=== PATIENT | female | born 1940 | race Caucasian/White ===

== ENCOUNTER 2019-06-17 06:08 | Inpatient (IN) | payer MEDICARE, OTHER, SELFPAY ==
[2019-06-10 08:25] VITALS: BMI 42.5
[2019-06-17] VITALS (21 sets, daily range): BP systolic 97–151; BP diastolic 50–89; PULSE 60–97; RESP 12–26; TEMP 35.8–37; O2SAT 95–100; BMI 42.5
--- NOTE | 2019-06-17 | DI.RAD.S_ITS ---
PROCEDURE: XR LUMBAR SPINE 1V INDICATIONS: L2-5 LAMINECTOMY TECHNIQUE: A single fluoroscopic image was obtained during an operative procedure and submitted for interpretation following the completion of the procedure. COMPARISON: Correlation is made with prior lumbar spine plain films 11/16/18 and 10/07/18. Correlation is made with lumbar spine MRI 10/14/18. FINDINGS: This single fluoroscopic images performed for intraoperative localization. On this image, there is a metallic probe seen overlying the posterior aspect of the L3 vertebral body. Please correlate with intraoperative findings. IMPRESSION: Normal intraoperative examination. Dictated by: Duong Simon M.D. on 06/17/2019 at 9:02 Approved by: Duong Simon M.D. on 06/17/2019 at 9:02
--- NOTE | 2019-06-17 07:07 | PM.PREOP ---
Pre-operative Note Interval Note History & Physical reviewed/Exam performed by Physician: Yes Changes to H&P: No
[2019-06-17] MEDS: CEFAZOLIN 2 GM/100 ML FROZ.PIGGY IV ×2 (07:45→16:08)
--- NOTE | 2019-06-17 08:21 | SUR.OPER ---
Prone on spine table, head in foam head support, padded chest and pelvic supports, gel pad at knees, lower legs supported by pillows; nipples, genitalia and toes free of pressure, arms secured on foam padded arm boards at <90 degrees abduction. Additional gel padding to bed rails at hip level. Tape over blanket at thigh secured to table.
[2019-06-17] MEDS: THROMBIN (RECOMBINANT) 5,000 UNIT VIAL 5000 UNIT TOP (08:38)
[2019-06-17] MEDS: BUPIVACAINE 0.25% (PF) 8 ML, fentaNYL 100 MCG INJ (08:38)
[2019-06-17] MEDS: VANCOMYCIN 1,000 MG VIAL 1000 MG TOP (08:39)
[2019-06-17] MEDS: SODIUM CHLORIDE 0.9% 1,000 ML, GENTAMICIN 80 MG IRR (08:43)
[2019-06-17] MEDS: ACETAMINOPHEN IV 1,000 MG/100 ML VIAL 400 MG IV (09:00)
[2019-06-17] MEDS: LACTATED RINGERS 1,000 ML 42 ML IV ×2 (09:29→13:03)
--- NOTE | 2019-06-17 10:47 | P.OP_ITS ---
Operative Date/Time/Diagnoses Date of procedure: 06/17/19 Time of procedure: 10:47 Pre-op diagnosis: Lumbar stenosis with radiculopathy Post-op diagnosis: same Procedure & Clinicians Procedure: L1-2, L2-3, L3-4, L4-5 laminectomies Use of microscope Placement of epidural catheter Same procedure as scheduled: Yes Indications: [age] year old female with intractable pain from stenosis. They had failed conservative management and requested operative intervention. Risks and benefits of surgery were discussed and appropriate consents were obtained. Surgeon: Kenny Arshad [employer] Supervisor: Gume Cool Anesthesia Type: General Operative Notes Findings: None Closure Type: primary Specimen(s): none sent Applied: catheter Estimated Blood Loss (mL): 20 Procedure in detail: Patient was brought to the operating room and intubated on the table. They were rolled over on the well-padded prone position on the Javier table. A time-out was performed. Preoperative antibiotics were given. The back was prepped and draped in standard sterile fashion. Using fluoroscopy for localization, a 15 cm incision was made in the midline. We used Bovie to dissect through the lumbodorsal fascia and then subperiosteally dissect the paraspinal muscles off the right side. A marker was placed and x-ray was taken to confirm positioning. We then brought in the microscope. A right-sided laminectomy was performed at L4-5, then L3-4, then L2-3, then L1-2. We carefully depressed the dura and reached across the midline to decompress the opposite side. The neural foramen were cleared out. At the end, we could reach with the ball probe cephalad and caudally across the midline and to the foramen and everything was opened. The wound was irrigated. An epidural catheter was prepared with 8 mL of 0.25% Marcaine and 100 mcg of fentanyl. The dura was carefully depressed and the catheter was advanced 6 cm cephalad underneath remaining lamina without resistance. The fascia was then closed in layers. The epidural catheter was injected without complications. Vancomycin powder was placed in the wound. The superficial and the skin were closed. Sterile dressing was placed. Patient was rolled over extubated brought to recovery room with no complications. Complications: none Post-operative Condition: stable Disposition: PACU Plan for aftercare: Admission anticipate, 1-2 days in the hospital. Up as tolerated.
[2019-06-17] MEDS: fentaNYL 100 MCG/2 ML INJ IV ×2 (11:26→11:36)
[2019-06-17] MEDS: HYDROMORPHONE 2 MG INJ IV ×16 (11:32→12:52)
[2019-06-17] MEDS: hydrOXYzine 50 MG/ML INJ 25 MG IM (11:40)
--- NOTE | 2019-06-17 12:00 | CM.IDA ---
Discharge Planning/Care Management CM Discharge Assessment Start: 06/17/19 11:55 Freq: Status: Active Protocol: Document 06/17/19 11:55 PARESH (Rec: 06/17/19 12:00 PARESH [id number]) Discharge Planning Assessment Assigned Manager Pmo OBED León DPOA/Assigned Designee Name Jim Troy, spouse Contact Information [phone] Advance Directives? Yes History Provided By Patient,Medical Record Prior Living Arrangements House Household Members spouse Is patient alert and oriented? Yes Barriers to Discharge No Comment Pt is in the OR today for spinal surgery w/ Dr Arshad. PCP: Donta Lenz Payer: PHILIP/ Domi Reviewed chart and spoke w/ PITA Elizabeth; it is expected that pt will be safe to return home once medically cleared from Ortho, w/spouse to assist. Notes do not indicate PLOF but pt planning on returning home w/family assist upon DC. DC Planning team will be following closely and will assess DC needs further once pt returns to the acute care floor. OBED Evans Discharge Plan Home Additional Comment Needs further assessment Review Status In Process
[2019-06-17] MEDS: METOCLOPRAMIDE 10 MG/2 ML INJ IV (14:07)
[2019-06-17] MEDS: LACTATED RINGERS 1,000 ML 125 ML IV ×2 (14:12→22:12)
--- NOTE | 2019-06-17 14:37 | PC.NURSE ---
POST OP ARRIVAL 1335 - arrived drowsy, awake, when asked how she felt, responded queasy, per HYGIENE COORDINATOR, had nydia earlier in pacu, none prior to transport, pt turned and back inspected, aguila drain with shadow drainage, now marked on arrival, no leakage and within margins, green light flashing, wearing footie scd, 2l 99%, does use an inhaler prn at home 1-2 times week, reduced 02 to 1L and maintained 96-99% while awake, schafer w/small qty yellow urine, LR at 125ml started, given 10mg iv reglan.
[2019-06-17] MEDS: HYDROCODONE/ACET 5/325 TABLET 1 TAB PO (16:11)
--- NOTE | 2019-06-17 16:32 | PT.IIE ---
Current Diagnoses Morbid (severe) obesity due to excess calories (06/17/19) Spinal stenosis, lumbar region with neurogenic claudication (06/17/19) Other intervertebral disc degeneration, lumbar region (06/17/19) Strain of muscle, fascia and tendon of lower back, subsequent encounter (06/17/19) Surgery Performed Operation Date: 06/17/19 07:45 Actual Procedures p L1-2,L2-3,L3-4,L4-5 Laminectomies - Kenny Arshad MD Surgical History (Last Updated 06/10/19 @ 08:35 by Gretchen Goldsmith RN) History of arthroplasty of left knee (Acute ~2014) History of arthroplasty of right knee (Acute ~2014) History of hysterectomy (Acute) Hx of tonsillectomy (Acute) Medical History (Last Updated 06/10/19 @ 08:35 by Gretchen Goldsmith RN) DDD (degenerative disc disease) (Acute) HLD (hyperlipidemia) (Acute) HTN (hypertension) (Acute) Hypothyroidism (Acute) Lumbar stenosis with neurogenic claudication (Acute) Numbness and tingling of both feet (Acute) Physical Therapy Inpatient Evaluation/Re-Eval M1 PT/OT-IP Prior Functional Status Start: 06/17/19 17:13 Freq: NEEDED Status: Active Protocol: Document 06/17/19 16:32 DCW (Rec: 06/17/19 17:32 DCW [id number]) Medical Review Prior Functional Status Medical History Reviewed Yes Diet/Fluid Consistency Regular Prior Functional Level (Other details) Pt has recently had minimal ambulation due to back and leg pain. Reports the majority of her ambulation came from chair->bathroom Social History Household Members spouse Living Arrangements House Number of Floors (Floors) One Floor Number of Stairs To Enter/Railing? 1 short step up from garage Home Environment Standard Height Toilet Additional Social History Comment Pt has been showering at her son's house, because he has a walk-in shower. She has been unable to lift her leg high enough to get into her own tub -shower M2 PT-IP Current Condition Start: 06/17/19 17:13 Freq: NEEDED Status: Active Protocol: Document 06/17/19 16:32 DCW (Rec: 06/17/19 17:32 DCW [id number]) Physical Therapy Current Condition Current Condition Evaluation Date 06/17/19 Treatment Diagnosis Lumbar stenosis /c radiculopathy s/p L1-5 Lami Onset Date 06/17/19 Precautions Lumbar Precautions Log Roll,No Twisting,Limit Bending,Lifting Restriction of 10 lbs,Gait Belt above Incisional Area Weight Bearing Status Weight Bearing Status Weight Bear as Tolerated M3 PT-IP Subjective Start: 06/17/19 17:13 Freq: NEEDED Status: Active Protocol: Document 06/17/19 16:32 DCW (Rec: 06/17/19 17:32 DCW [id number]) Subjective Physical Therapy Visit Type Type Initial Evaluation Visit Start Time 16:32 Visit Stop Time 17:08 Total Visit Minutes 36 Physical Therapy Visit Comments Patient Comments Pt reported no pain when lying in bed, no pain during log roll. Pain 10/10 when scooting in bed M4 PT-IP Mobility and Gait Start: 06/17/19 17:13 Freq: NEEDED Status: Active Protocol: Document 06/17/19 16:32 DCW (Rec: 06/17/19 17:32 DCW [id number]) PT-Bed Mobility Assessment Rolling Type of Rolling Log Rolling,Roll to Left Level of Assist Minimal Assistance Supine to Sit Supine to Sit Minimal Assistance Sit to Supine Sit to Supine Minimal Assistance Scooting Scooting to Edge of Bed Moderate Assistance Scooting Up and Down in Bed Minimal Assistance PT-Transfer Assessment Sit to and From Stand Sit to and from Stand Contact Guard Assistance Equipment Transfer Assistive Device Bed Rail,Gait Belt,Front Wheeled Walker Comments Mobility Comments Pt experinced her knees wobbling in standing. Only able to tolerate standing >5 seconds x3. Pt unable to tolerate any further testing due to fatigue and pain M5 PT-IP Objective Assessments Start: 06/17/19 17:13 Freq: NEEDED Status: Active Protocol: Document 06/17/19 16:32 DCW (Rec: 06/17/19 17:32 DCW [id number]) Orientation Orientation/Cognition Level of Alertness Alert Orientation Name,Birthday,Month,Date,Year, Place,Situation Safety Awareness Understands Safety Issues Memory Description No Deficits Noted Gross Range of Motion Lower Extremity ROM Assessment Bilaterally Impaired Strength Lower Extremity Strength Assessment Bilaterally Impaired Hip 4/5 Knee 4-/5 Ankle 4/5 M6 PT-IP Treatment Start: 06/17/19 17:13 Freq: NEEDED Status: Active Protocol: Document 06/17/19 16:32 DCW (Rec: 06/17/19 17:32 DCW [id number]) Physical Therapy Treatment Exercises Exercises Ankle Pumps Education Education Provided Precautions,Safety Other Treatments Other Treatment Performed Sit<->Stands M7 PT-IP Assessment and Plan Start: 06/17/19 17:13 Freq: NEEDED Status: Active Protocol: Document 06/17/19 16:32 DCW (Rec: 06/17/19 17:32 DCW [id number]) PT Summary Assessment and Plan Potential Rehabilitation Potential Good Status of Condition at Evaluation Stable Summary Impairments Pain,ROM,Strength,Balance,Bed Mobility,Transfers,Gait, Activity Tolerance Assessment Summary Pt presents on day of surgery with minimal back or leg pain at rest, but apprehensive about moving. After exclaiming that she couldn't do it when asked to log roll, she was able to with min Ax1 and no increased pain. Pt was then able to sit with minimal pain , however experienced severe pain when scooting to the edge of the bed, reporting it 10/ 10, however wanted to continue . Pt performed sit->stand CGA x3 with minimal pain but became fatigued and reported her knees felt like they were going to buckle. Pt was then put back in bed, Min->Mod Ax1 to lie back down and log roll into supine, and then required Max Ax2 to scoot back. Reviewed importance of ankle pumps and following spinal precautions. Pt was left with PIPE FITTER GAS PIPE at the end of her treatment session. Goals Bed Mobility Goal Independent Transfer Goal Independent Gait Goal Independent,Front Wheel Walker Gait Distance 75' Frequency of Treatment Frequency Of Treatment Twice a Day Treatment Plan Physical Therapy Treatment Plan Bed Mobility Training,Transfer Training,Gait Training, Therapeutic Exercise Other Recommendations and Next Treatment Activity tolerance, bed Focus mobility, transfers, gait Recommendations To Nursing Amount of Assist Needed 1 Person Assist,2 Person Assist Discharge Recommendations PT Discharge Recommendations Home with Assistance
--- NOTE | 2019-06-17 19:01 | PC.NURSE ---
Assumed care of pt at 1500. Pt sleeping during bedside hand-off. Awakens to voice. Drsg with moderate spot of drainage remains within the previously drawn borders. CMS+. Shook draining to gravity. IVF infusing per orders. PO analgesics per mar for post-op pain. Per VALENTÍN hahn to use own Albuterol inhaler at bedside. Inhaler sent to pharmacy for identification.
[2019-06-17] MEDS: carvediloL 12.5 MG TABLET PO (20:38)
[2019-06-17] MEDS: DOCUSATE 100 MG CAPSULE PO (20:39)
[2019-06-17] MEDS: CELECOXIB 200 MG CAPSULE PO (20:39)
[2019-06-17] MEDS: SENNOSIDES 8.6 MG TABLET 17.2 MG PO (20:40)
[2019-06-17] MEDS: HYDROCODONE/ACET 5/325 TABLET 2 TAB PO (20:40)
[2019-06-17] MEDS: GABAPENTIN 300 MG CAPSULE PO (20:40)
[2019-06-18] VITALS (8 sets, daily range): BP systolic 112–146; BP diastolic 57–83; PULSE 72–94; RESP 12–18; TEMP 36.4–37.6; O2SAT 93–98
[2019-06-18] MEDS: CEFAZOLIN 2 GM/100 ML FROZ.PIGGY IV (00:16)
--- NOTE | 2019-06-18 01:24 | PC.NURSE ---
Addendum entered by Erika Becerra R.N. 06/18/19 05:19: Patient has slept most of night. This morning states pain is 6/10 at rest and 8/10 with movement. Repositioned onto back and medicated with Vicodin. Original Note: 0020 Patient is alert and oriented. Breath sounds CTA with RA sat of 95%. HRR. BP elevated at 147/83. Denies nausea. BT present and states she is passing flatus. Indwelling catheter is patent; urine is clear yellow. Unable to move self in bed but able to assist to reposition q2h. STACIE dressing to back with old drainage outlined and no new drainage noted. Denies pain at present time. Reports continued weakness in bilateral LE. 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 Calf SCD's placed as per MD order. Fall risk score is high (reports fall in past 3 months) and bed alarm is activated.
--- NOTE | 2019-06-18 01:56 | PC.NURSE ---
[employer] note: tilted the brittny bed to the right a little bit (4 degrees) to offload some pressure from side. Q2 hour turns in place.
[2019-06-18] MEDS: HYDROCODONE/ACET 5/325 TABLET 2 TAB PO ×3 (05:15→21:36)
[2019-06-18 05:34] LABS: Hemoglobin 12.2 g/dL (12.0-16.0)
[2019-06-18] MEDS: LEVOTHYROXINE 137 MCG TABLET PO (06:01)
--- NOTE | 2019-06-18 08:48 | PM.PNPO.1 ---
Subjective Subjective Date Patient Seen: 06/18/19 Time Patient Seen: 08:48 Interval history: She is doing better today. Leg still feel weak and tingling but better than they did prior to surgery. Pain is about a 3/10. So far she has only gotten out of bed transfer to a chair. Exam Vital Signs (past 8 hours): - 06/18/19 05:29 Temperature 99.6 F Pulse Rate 91 H Respiratory Rate 16 Blood Pressure 146/83 H Pulse Oximetry 95 Oxygen Delivery Method Room Air Oxygen Flow Rate 0 Const Orientation: alert and oriented x3 Back/Spine/Pelvis Other: Dressing saturated but appears to be mostly old dried blood. 5/5 motor both lower extremities Objective Labs Result Diagrams: 06/18/19 05:20 Labs: Laboratory Results - last 24 hr 06/18/19 05:20 Hgb 12.2 Hct 35.0 L Assessment & Plan Post-op Postoperative Procedures: Procedures Operation Date: 06/17/19 07:45 Actual Procedures Side Surgeon p L1-2,L2-3,L3-4,L4-5 Laminectomies Kenny Arshad MD Status post 4 level laminectomy. Continue to mobilize today with physical therapy. I anticipate her being here for 1-2 more days, primarily based on her severe preoperative weakness and deconditioning. This will take significant time for her to start building up her strength to get moving independently again. Quality VTE Deep Vein Thrombosis/Pulmonary Embolism Present on Admission: No
--- NOTE | 2019-06-18 08:56 | OT.IP.EVAL ---
Current Diagnoses Morbid (severe) obesity due to excess calories (06/17/19) Spinal stenosis, lumbar region with neurogenic claudication (06/17/19) Other intervertebral disc degeneration, lumbar region (06/17/19) Strain of muscle, fascia and tendon of lower back, subsequent encounter (06/17/19) Surgery Performed Operation Date: 06/17/19 07:45 Actual Procedures p L1-2,L2-3,L3-4,L4-5 Laminectomies - Kenny Arshad MD Past Medical History (Last Updated 06/10/19 @ 08:35 by Gretchen Goldsmith RN) DDD (degenerative disc disease) (Acute) HLD (hyperlipidemia) (Acute) HTN (hypertension) (Acute) Hypothyroidism (Acute) Lumbar stenosis with neurogenic claudication (Acute) Numbness and tingling of both feet (Acute) Surgical History (Last Updated 06/10/19 @ 08:35 by Gretchen Goldsmith RN) History of arthroplasty of left knee (Acute ~2014) History of arthroplasty of right knee (Acute ~2014) History of hysterectomy (Acute) Hx of tonsillectomy (Acute) Occupational Therapy Inpatient Evaluation/Re-Eval M1 PT/OT-IP Prior Functional Status Start: 06/17/19 17:13 Freq: NEEDED Status: Active Protocol: Document 06/18/19 10:10 CGR (Rec: 06/18/19 10:30 CGR [email or web address]) Medical Review Prior Functional Status Medical History Reviewed Yes Diet/Fluid Consistency Regular Communication Pt is an effecitve verbal communicator. Mobility and Gait Pt used a FWW for mobility around the house and in the driveway and a rollator for mobility out in town. Pt with very limited mobility. Activities of Daily Living and IADL's Pt needed assist with socks, showes, underwear, pants, cooking and cleaning. Prior Functional Level (Other details) Pt has recently had minimal ambulation due to back and leg pain. Reports the majority of her ambulation came from chair->bathroom Social History Household Members spouse Living Arrangements House Number of Floors (Floors) One Floor Number of Stairs To Enter/Railing? 1 short step up from garage Home Environment High Toilet,Tub/Shower Home Equipment Front Wheel Walker,Four Wheel Walker,Bedside Commode,Shower Seat with Backrest,Grab Bars In Shower Employment Status Retired Additional Social History Comment Pt has been showering at her son's house, because he has a walk-in shower. She has been unable to lift her leg high enough to get into her own tub -shower. Pt's son is preparing to put a grab bar in by the toilet but pt has been using a drop arm BSC during the day to minimize the distance she need to travel to get to the toilet. Pt has a huricane that she used after her knee replacements. M2 OT-IP Current Condition Start: 06/18/19 10:09 Freq: Status: Active Protocol: Document 06/18/19 10:10 CGR (Rec: 06/18/19 10:30 CGR [email or web address]) Occupational Therapy Current Condition Current Condition Evaluation Date 06/18/19 Treatment Diagnosis L1-5 Lami Diagnosis Onset Date 06/17/19 Post Operative Precautions Lumbar Precautions Log Roll,No Twisting,Limit Bending,Lifting Restriction of 10 lbs,Gait Belt above Incisional Area M3 OT- IP Subjective and Pain Start: 06/18/19 10:09 Freq: Status: Active Protocol: Document 06/18/19 10:10 CGR (Rec: 06/18/19 10:30 CGR [email or web address]) OT- Subjective Occupational Therapy Visit Type Type Initial Evaluation Visit Start Time 08:10 Visit Stop Time 08:56 Total Visit Minutes 46 Occupational Therapy Visit Comments Patient Comments Pt states that she was very weak yesterday but states she feels better today. OT Pain Assessment Pain When Pain Assessed At Rest Pain Present Pain Present Pain Reported Location lower back and legs and feet Intensity 3 Scale Used Numeric (1 - 10) Management Techniques Distraction,Modification of Treatment,Re-positioning, Timing of Activity with Medications M4 OT- IP ADL's Start: 06/18/19 10:09 Freq: Status: Active Protocol: Document 06/18/19 10:10 CGR (Rec: 06/18/19 10:30 CGR [email or web address]) OT RGB-Keii-Ddrixhq General Evaluation Self-Feeding Ability Independent Comments OT Self-Feeding Comments Pt finishing breakfast when OT entered. OT ADL-Grooming General Evaluation Grooming Ability Minimal Assistance Areas Needing Assistance Retrieving/Set-up of Grooming Items,Face Washing Comments OT Grooming Comments seated in chair OT ADL-Oral Care General Eval Oral Care Ability Maximum Assistance Areas of Assistance Managing Dentures Comments Oral Care Comments Pt requested therapsit to assist with cleaning dentures at sink. States fatigued from transfer to chair. OT ADL-Dressing Comments OT Dressing Comments Not performed in this session. Planned to perform tomorrow with DME OT ADL-Toileting Comments OT Toileting Comments Not performed in this session, pt with schafer. OT ADL-Bathing Comments OT Bathing Comments Not performed in this session. M5 OT- IP IADL's Start: 06/18/19 10:09 Freq: Status: Active Protocol: Document 06/18/19 10:10 CGR (Rec: 06/18/19 10:30 CGR [email or web address]) OT-Instrumental Activities of Daily Living Deficits IADL Deficits Identified Deficits Home Safety Awareness Awareness of Need for Assistance at Home Good Awareness Ability to Problem Solve Emergency Able to Problem Solve Situations Medication Management Medication Management No Deficits Identified Money Management Money Management No Deficits Identified Meal Preparation Meal Preparation Caregiver Provides Assist Bee Tender Bee Tender Caregiver Provides Assist Driving Driving Comments Pt does not drive M6 OT- IP Functional Cognition Start: 06/18/19 10:09 Freq: Status: Active Protocol: Document 06/18/19 10:10 CGR (Rec: 06/18/19 10:30 CGR [email or web address]) Cognitive Factors Limiting Selfcare Function Cognitive Ability Level of Alertness Alert Patient Orientation Name,Age,Birthday,Month,Date, Year,Day of Week,Place, Situation Attention Span Ability Capable of Focused Attention, Capable of Sustained Attention Ability to Follow Commands Able to Follow Multi-Step Commands Memory Description No Deficits Noted Safety Awareness Decreased Recall of Precautions Problem Solving Ability No deficits Noted Executive Function Ability No Deficits Noted Abstract Thinking Ability No Deficits Noted Cognitive Comments Cognitive Assessment Comments Pt appears cognitively sharp for 79 years old. Pt is a good listener, follows commands, and applys new information to her decision making. OT- Vision and Hearing OT- Hearing Assessment OT- Hearing Assessment WFL OT- Vision Assessment Visual Acuity Glasses All The Time Visual Attentiveness WFL Occular Pursuits WFL Visual Convergence WFL Visual Gallego WFL Vision Assessment Comments Pt is slow with visual tracking but WFL as she no longer drives. M7 OT- IP Mobility and Balance Start: 06/18/19 10:09 Freq: Status: Active Protocol: Document 06/18/19 10:10 CGR (Rec: 06/18/19 10:30 CGR [email or web address]) OT- Bed Mobility Assessment Rolling Level of Assistance Minimal Assistance Supine to Sit Supine to Sit Assist Moderate Assistance Sit to Supine Sit to Supine Assist Moderate Assistance Scooting Scooting to Edge of Bed Moderate Assistance OT-Transfer Assessment Sit to and From Stand Sit to and from Stand Contact Guard Assistance Transfers Transfer Ability Minimal Assistance Technique Transfer Destination Bed,Chair Transfer Technique Stand Step Pivot Devices Transfer Assistive Devices Gait Belt,Front Wheeled Walker Comments Mobility Comments Pt was able to take steps to the chair. States her legs feel stronger, however, during transfer her knees are slightly bent and pt appears unstable. OT- Gait Assessment Comments Gait Ability Comments Pt transfered from bed to chair only. No further gait in this session. OT- Balance Assessment Sitting Balance and Reactions Static Sitting Balance Ability Good Dynamic Sitting Balance Ability Fair M8 OT- IP Objective Assessments Start: 06/18/19 10:09 Freq: Status: Active Protocol: Document 06/18/19 10:10 CGR (Rec: 06/18/19 10:30 CGR [email or web address]) OT Gross Range of Motion Upper Extremity Range of Motion Assessment Within Functional Limits OT Strength Upper Extremity Strength Assessment Within Functional Limits Comments Strength Comments Grossly 4/5 OT- Coordination Assessment Upper Extremity Finger to Nose Test Within Functional Limits Finger Tapping Test Within Functional Limits OT-Muscle Tone Assessment Muscle Tone WNL Yes OT Sensation Assessment Comments Summary Comments Pt states tingling and numbness to her feet but nothing to her arms or hands. Edema Edema Absent M9 OT- IP Assessment and Plan Start: 06/18/19 10:09 Freq: Status: Active Protocol: Document 06/18/19 10:10 CGR (Rec: 06/18/19 10:30 CGR [email or web address]) OT Summary Assessment and Plan Potential Rehabilitation Potential Good Analytic Complexity at Evaluation Low Summary OT Impairments Pain,Strength,Balance, Functional Mobility,Grooming, Dressing,Toileting,Bathing, Toilet Transfers,Shower Transfers,Activity Tolerance Progress Towards Goals Slow Progress due to Pain,Slow Progress due to Activity Tolerance Assessment Summary Pt presents as a low complexity evaluation s/p L1-5 TLIF. Pt had limited mobility using DME prior to sx from back pain. Pt demonstrates eagerness to participate and get better. Pt would benefit from SNF upon discharge for increased safety and strengthening prior to discharge. Goals Grooming Goal Independent Dressing Goal Independent Toileting Goal Independent Bathing Goal Standby Assistance Toilet Transfer Goal Independent,ADA High Toilet, Grab Bars Shower Transfer Goal Standby Assistance,Walk-in Shower Days to Meet Goals 10 Frequency of Treatment Frequency Of Treatment Once a Day Treatment Plan OT Treatment Plan ADL Training,Functional Mobility,Patient/Family Education,Discharge Planning Other Treatment Recommendations and Next Shower and ADLs standing if Treatment Focus tolerated. LB dressing. Discharge Recommendations OT Discharge Recommendations SNF Rehab Other Discharge Recommendations Pt agreeable to considering SNF if needed at time of discharge. Home Equipment Needs Tub transfer bench, educated pt on use for home. Transportation Needs at Discharge Private Vehicle
[2019-06-18] MEDS: LOSARTAN 50 MG TABLET 100 MG PO (09:33)
[2019-06-18] MEDS: ASPIRIN EC 81 MG TABLET PO (09:33)
[2019-06-18] MEDS: carvediloL 12.5 MG TABLET PO ×2 (09:33→21:36)
[2019-06-18] MEDS: AMLODIPINE 5 MG TABLET 10 MG PO (09:33)
[2019-06-18] MEDS: DOCUSATE 100 MG CAPSULE PO ×2 (09:34→21:36)
[2019-06-18] MEDS: CELECOXIB 200 MG CAPSULE PO ×2 (09:35→21:36)
[2019-06-18] MEDS: SODIUM CHLORIDE 0.9% FLUSH 10 ML IV ×2 (09:36→21:38)
[2019-06-18] MEDS: FISH OIL 1,000 MG CAPSULE 1000 MG PO (09:39)
--- NOTE | 2019-06-18 10:29 | PC.NURSE ---
Pt is A&Ox3, she states that her pain is 4/10. Dressing to lower back is cdi with old amount of dried bloody drainage. Patient has a aguila drain applied. Up with 1-2 PA when working with therapy. She has been up in the chair. Appetite good. Working with physical therapy at this time.
--- NOTE | 2019-06-18 10:59 | PT.IPTN ---
Current Diagnoses Morbid (severe) obesity due to excess calories (06/17/19) Spinal stenosis, lumbar region with neurogenic claudication (06/17/19) Other intervertebral disc degeneration, lumbar region (06/17/19) Strain of muscle, fascia and tendon of lower back, subsequent encounter (06/17/19) Surgery Performed Operation Date: 06/17/19 07:45 Actual Procedures p L1-2,L2-3,L3-4,L4-5 Laminectomies - Kenny Arshad MD Physical Therapy Treatment Note M2 PT-IP Current Condition Start: 06/17/19 17:13 Freq: NEEDED Status: Active Protocol: Document 06/17/19 16:32 DCW (Rec: 06/17/19 17:32 DCW [id number]) Physical Therapy Current Condition Current Condition Evaluation Date 06/17/19 Treatment Diagnosis Lumbar stenosis /c radiculopathy s/p L1-5 Lami Onset Date 06/17/19 Precautions Lumbar Precautions Log Roll,No Twisting,Limit Bending,Lifting Restriction of 10 lbs,Gait Belt above Incisional Area Weight Bearing Status Weight Bearing Status Weight Bear as Tolerated M3 PT-IP Subjective Start: 06/17/19 17:13 Freq: NEEDED Status: Active Protocol: Document 06/18/19 10:35 HH (Rec: 06/18/19 10:59 [id number]) Subjective Physical Therapy Visit Type Type Treatment Note Visit Start Time 10:12 Visit Stop Time 10:35 Total Visit Minutes 23 Physical Therapy Visit Comments Patient Comments Pt agreeable to mobilize with PT M4 PT-IP Mobility and Gait Start: 06/17/19 17:13 Freq: NEEDED Status: Active Protocol: Document 06/18/19 10:35 HH (Rec: 06/18/19 10:59 [email or web address]) PT-Transfer Assessment Sit to and From Stand Sit to and from Stand Contact Guard Assistance, Minimal Assistance,1 Person Assistance Equipment Transfer Assistive Device Gait Belt,Front Wheeled Walker Transfers Transfer Destination Chair Transfer Technique Stand Step Pivot Transfer Ability Level of Assist Contact Guard Assistance, Minimal Assistance,1 Person Assistance Comments Mobility Comments Pt was up in chair upon PT arrival. Pt reported cont decreased sensation below B knees but slightly better. She had difficulty getting up from chair and needed multiple attempts with trunk rocking motion to stand up with min A. Pt needed cues for hand placement on FWW and chair armrest. She then amb to sink counter and returned back to chair. And she stood up after a rest break and able to stand up with CGA and amb up to room door. She returned back to chair after. Call light within reach. Gait Assessment Gait Gait Assistance Required: Contact Guard Assist Distance (Feet) 25 Able to Maintain Weight Bearing Status Yes During Gait Assistive Devices Assistive Device Gait Belt,Front Wheeled Walker Orthotic/Prosthetic Devices or Brace: No Gait Deviations General Gait Pattern Antalgic,Decreased Stride Length,Decreased Feet Clearance,Step-to Gait Factors Limiting Gait Function Factors Limiting Gait Function Decreased Activity Tolerance, Decreased Strength,Limited Range of Motion,Pain,Poor Balance,Poor Safety Awareness Comments Gait Comments Pt amb from chair to sink counter for first attempt and took 5 mins rest break followed by from chair to room door. Pt got fatigue very easily and c/o B LE weakness who had difficulty lifting up her Legs. She amb with B foot drag. M5 PT-IP Objective Assessments Start: 06/17/19 17:13 Freq: NEEDED Status: Active Protocol: Document 06/17/19 16:32 DCW (Rec: 06/17/19 17:32 [facility] [id number]) Orientation Orientation/Cognition Level of Alertness Alert Orientation Name,Birthday,Month,Date,Year, Place,Situation Safety Awareness Understands Safety Issues Memory Description No Deficits Noted Gross Range of Motion Lower Extremity ROM Assessment Bilaterally Impaired Strength Lower Extremity Strength Assessment Bilaterally Impaired Hip 4/5 Knee 4-/5 Ankle 4/5 M6 PT-IP Treatment Start: 06/17/19 17:13 Freq: NEEDED Status: Active Protocol: Document 06/17/19 16:32 DCW (Rec: 06/17/19 17:32 DC [id number]) Physical Therapy Treatment Exercises Exercises Ankle Pumps Education Education Provided Precautions,Safety Other Treatments Other Treatment Performed Sit<->Stands M7 PT-IP Assessment and Plan Start: 06/17/19 17:13 Freq: NEEDED Status: Active Protocol: Document 06/18/19 10:35 HH (Rec: 06/18/19 10:59 HH [id number]) PT Summary Assessment and Plan Potential Rehabilitation Potential Good Status of Condition at Evaluation Stable Summary Impairments Pain,ROM,Strength,Balance,Bed Mobility,Transfers,Gait, Activity Tolerance Assessment Summary Pt cont progress slowly and has significant B LE weakness. Pt shows very limited activity tolerance who is only able to amb from chair to sink/ room door. Dis with pt regarding her decreased mobility would possibly be a burden for her 'care, along with high fall risks. Pt agreed to participate skilled rehab to improve mobility and strength at this point. Goals Bed Mobility Goal Independent Transfer Goal Independent Gait Goal Independent,Front Wheel Walker Gait Distance 75' Frequency of Treatment Frequency Of Treatment Twice a Day Treatment Plan Physical Therapy Treatment Plan Bed Mobility Training,Transfer Training,Gait Training, Therapeutic Exercise Other Recommendations and Next Treatment Activity tolerance, bed Focus mobility, transfers, gait Recommendations To Nursing Amount of Assist Needed 1 Person Assist Discharge Recommendations PT Discharge Recommendations SNF Rehab
--- NOTE | 2019-06-18 12:09 | CM.DPNOTE ---
MACHINE CASTINGS PLASTERER told me today at noon that they are advising SNF. I spoke to patient and provided MCR list for her and her to review. I also provided directions as to how to comparison shop the facilities online. Patient not certain she wants to go to SNF... needs to talk to before they go that route. He'll be in lthis afternoon. They will let MANAGER CUSTOMER know what they chose [facility].
--- NOTE | 2019-06-18 15:01 | PT.IPTN ---
Current Diagnoses Morbid (severe) obesity due to excess calories (06/17/19) Spinal stenosis, lumbar region with neurogenic claudication (06/17/19) Other intervertebral disc degeneration, lumbar region (06/17/19) Strain of muscle, fascia and tendon of lower back, subsequent encounter (06/17/19) Surgery Performed Operation Date: 06/17/19 07:45 Actual Procedures p L1-2,L2-3,L3-4,L4-5 Laminectomies - Kenny Arshad MD Physical Therapy Treatment Note M2 PT-IP Current Condition Start: 06/17/19 17:13 Freq: NEEDED Status: Active Protocol: Document 06/17/19 16:32 DCW (Rec: 06/17/19 17:32 DCW [id number]) Physical Therapy Current Condition Current Condition Evaluation Date 06/17/19 Treatment Diagnosis Lumbar stenosis /c radiculopathy s/p L1-5 Lami Onset Date 06/17/19 Precautions Lumbar Precautions Log Roll,No Twisting,Limit Bending,Lifting Restriction of 10 lbs,Gait Belt above Incisional Area Weight Bearing Status Weight Bearing Status Weight Bear as Tolerated M3 PT-IP Subjective Start: 06/17/19 17:13 Freq: NEEDED Status: Active Protocol: Document 06/18/19 14:44 KS (Rec: 06/18/19 15:28 KS [id number]) Subjective Physical Therapy Visit Type Type Treatment Note Visit Start Time 14:44 Visit Stop Time 15:01 Total Visit Minutes 17 Number of BAR CAPTAIN Visits 1 Physical Therapy Visit Comments Patient Comments Pt agreeable to mobilize with PT M4 PT-IP Mobility and Gait Start: 06/17/19 17:13 Freq: NEEDED Status: Active Protocol: Document 06/18/19 14:44 KS (Rec: 06/18/19 15:28 KS [id number]) PT-Bed Mobility Assessment Scooting Scooting to Edge of Bed Contact Guard Assistance PT-Transfer Assessment Sit to and From Stand Sit to and from Stand Contact Guard Assistance, Minimal Assistance,1 Person Assistance Equipment Transfer Assistive Device Gait Belt,Front Wheeled Walker Transfers Transfer Destination Chair Transfer Technique Pt ambulated w/ FWW. Transfer Ability Level of Assist Contact Guard Assistance, Minimal Assistance,1 Person Assistance Comments Mobility Comments Pt was in chair upon arrival from PT. BP 130/64 prior to iniating treatment. Pt scooted to edge of chair CGA, then stood after second attempt w/ CGA to Min A w/ cues to push up from chair. Once standing, pt stated she needed to wait before ambulating for sensation to come back to her feet. Pt then ambulated and returned to chair. Pt demonstrated proper FWW technique and was CGA for stand<>sit in chair. Pt was then instructed in ankle pumps , quad sets, and glute sets. Pt left in room w/ all needs in reach and son/Tim present . Gait Assessment Gait Gait Assistance Required: Contact Guard Assist,1 Person Assist Distance (Feet) 35 Able to Maintain Weight Bearing Status Yes During Gait Assistive Devices Assistive Device Gait Belt,Front Wheeled Walker Orthotic/Prosthetic Devices or Brace: No Gait Deviations General Gait Pattern Antalgic,Decreased Stride Length,Decreased Feet Clearance,Step-to Gait Factors Limiting Gait Function Factors Limiting Gait Function Decreased Activity Tolerance, Decreased Strength,Limited Range of Motion,Pain,Poor Balance,Poor Safety Awareness Comments Gait Comments Pt ambulated ~35 ft from chair out into hallway and then back to [facility] w/ FWW and CGA. She required 1 x15 sec standing rest break during approach back to chair. Cues for upright posture. Pt was mindful/had good recall of importance of foot clearance and was not dragging her feet during ambulation, but still had decreased clearance and stride length due to weakness and lack of sensation. M5 PT-IP Objective Assessments Start: 06/17/19 17:13 Freq: NEEDED Status: Active Protocol: Document 06/17/19 16:32 DCW (Rec: 06/17/19 17:32 DCW [id number]) Orientation Orientation/Cognition Level of Alertness Alert Orientation Name,Birthday,Month,Date,Year, Place,Situation Safety Awareness Understands Safety Issues Memory Description No Deficits Noted Gross Range of Motion Lower Extremity ROM Assessment Bilaterally Impaired Strength Lower Extremity Strength Assessment Bilaterally Impaired Hip 4/5 Knee 4-/5 Ankle 4/5 M6 PT-IP Treatment Start: 06/17/19 17:13 Freq: NEEDED Status: Active Protocol: Document 06/18/19 14:44 KS (Rec: 06/18/19 15:28 KS [id number]) Physical Therapy Treatment Exercises Exercises Ankle Pumps,Gluteal Sets,Quad Sets Education Education Provided Precautions,Safety Other Treatments Other Treatment Performed Reviewed precautions M7 PT-IP Assessment and Plan Start: 06/17/19 17:13 Freq: NEEDED Status: Active Protocol: Document 06/18/19 14:44 KS (Rec: 06/18/19 15:28 KS [id number]) PT Summary Assessment and Plan Potential Rehabilitation Potential Good Status of Condition at Evaluation Stable Summary Impairments Pain,ROM,Strength,Balance,Bed Mobility,Transfers,Gait, Activity Tolerance Assessment Summary BP 130/64 prior to treatment. Pt continues to have B lack of sensation in feet. CGA to Min A for mobility, CGA for ambulation w/ FWW. Pt ambulated ~35 ft w/ FWW and cues for upright posture, she needed 1 short standing rest break on approach back to chair. Had good recall and did not drag feet during ambulation. Pt instructed in LE strengthening exercises to help w/ blood flow and strength for mobility/ ambulation. Pt will benefit from continued skilled therapy including mobility, gait training, and strengthening to improve level of function and tolerance to activity. Goals Bed Mobility Goal Independent Transfer Goal Independent Gait Goal Independent,Front Wheel Walker Gait Distance 75' Frequency of Treatment Frequency Of Treatment Twice a Day Treatment Plan Physical Therapy Treatment Plan Bed Mobility Training,Transfer Training,Gait Training, Therapeutic Exercise Other Recommendations and Next Treatment Activity tolerance, bed Focus mobility, transfers, gait Recommendations To Nursing Amount of Assist Needed 1 Person Assist Discharge Recommendations PT Discharge Recommendations SNF Rehab
[2019-06-18] MEDS: HYDROCODONE/ACET 5/325 TABLET 1 TAB PO (17:35)
[2019-06-18] MEDS: SENNOSIDES 8.6 MG TABLET 17.2 MG PO (21:36)
[2019-06-18] MEDS: GABAPENTIN 300 MG CAPSULE PO (21:36)
[2019-06-19] VITALS (8 sets, daily range): BP systolic 109–150; BP diastolic 59–77; PULSE 69–80; RESP 16–19; TEMP 35.9–36.9; O2SAT 94–97
--- NOTE | 2019-06-19 00:22 | PC.NURSE ---
Addendum entered by Erika Becerra R.N. 06/20/19 02:52: Noted that last night emar showing only 1 tab of Vicodin was given at 0344, but 2 tabs were given (both were scanned but unsure why only displaying 1 tab). Unable to undo the administration in order to correct the emar. Did reenter the 2 tabs of Vicodin tonight that were given last night. Addendum entered by Erika Becerra R.N. 06/19/19 06:34: Catheter d'cd at 0625; patient tolerated well. Instructed in sx/prevention of UTI. Addendum entered by Erika Becerra R.N. 06/19/19 03:49: Patient complains of 8/10 back pain; repositioned onto back and medicated with Vicodin Original Note: Patient is alert and oriented. Breath sounds CTA with RA sat of 96%. HRR. Denies nausea. BT present and is passing flatus. Indwelling catheter is patent; urine clear, pale, yellow. Plan is to DC catheter in a.m. Continues to need assistance to reposition in bed. STACIE dressing to back is intact with increased drainage from last night which was reoutlined on evening shift and now within those new markings. Denies pain at present time. Chronic bilateral LE neuropathy with some improvement since surgery, otherwise CMS intact. Wearing bilateral calf SCD's. Fall risk score is high and bed alarm is activated.
[2019-06-19] MEDS: HYDROCODONE/ACET 5/325 TABLET 2 TAB PO ×3 (03:44→14:38)
[2019-06-19] MEDS: HYDROCODONE/ACET 5/325 TABLET 1 TAB PO (03:44)
[2019-06-19] MEDS: LEVOTHYROXINE 137 MCG TABLET PO (06:19)
--- NOTE | 2019-06-19 07:54 | PM.PNPO.1 ---
Subjective Subjective Date Patient Seen: 06/19/19 Time Patient Seen: 07:54 Interval history: She is doing well. Still requiring assist for mobility. However her legs are feeling much better today. Exam Vital Signs (past 8 hours): - 06/19/19 04:14 Temperature 96.7 F L Pulse Rate 73 Respiratory Rate 16 Blood Pressure 125/72 Pulse Oximetry 95 Oxygen Delivery Method Room Air Oxygen Flow Rate 0 Const Orientation: alert and oriented x3 Back/Spine/Pelvis Other: Unchanged dry saturation dressing. 5/5 motor both lower extremities Objective Labs Result Diagrams: 06/18/19 05:20 Assessment & Plan Post-op Postoperative Procedures: Procedures Operation Date: 06/17/19 07:45 Actual Procedures Side Surgeon p L1-2,L2-3,L3-4,L4-5 Laminectomies Kenny Arshad MD She is doing well. Continue to mobilize with therapy. Anticipate discharge home tomorrow with her , who was been taking care of her when she was severely debilitated preoperatively. Quality VTE Deep Vein Thrombosis/Pulmonary Embolism Present on Admission: No
--- NOTE | 2019-06-19 08:10 | PC.NURSE ---
Addendum entered by Kitty Huffman R.N. 06/19/19 15:20: Phoned about patients Aguila dressing and that it would not seal properly, He is fine with coversites being applied, no drainage noted to area. Addendum entered by Kitty Huffman R.N. 06/19/19 14:48: Attempted to change patients aguila dressing but could not get a good seal towards distal end of dressing as it was close to patients bottom crack. Attemped several times to cover the seal but would not take. Coordinator and this RN went down to supply room to try and see if we could find just the aguila dressing but it comes in a whole kit... Dressing covered with two water proof cover sites and cdi. Patient does seem a bit forgetful at times. Son in room visiting. Addendum entered by Kitty Huffman R.N. 06/19/19 12:13: Pt just ambulated in the halls with librarian assistant and tolerated. She is planning on going to a alf facility maybe tomorrow. Original Note: Assess- Patient is A&Ox3, she denies pain as she had vicodin at 0430. Dressing to lower back is a aguila dressing that is saturated, in and we will change the dressing today as he has ordered. Patient is most likely going to go home, her will be able to help her out at home. She is a one person assist to use the commode. Shook has been taken out and patient will have some disposable underwear put on her as she does have stress incontinence.
[2019-06-19] MEDS: FISH OIL 1,000 MG CAPSULE 1000 MG PO (09:28)
[2019-06-19] MEDS: CELECOXIB 200 MG CAPSULE PO ×2 (09:28→20:40)
[2019-06-19] MEDS: ASPIRIN EC 81 MG TABLET PO (09:28)
[2019-06-19] MEDS: LOSARTAN 50 MG TABLET 100 MG PO (09:28)
[2019-06-19] MEDS: carvediloL 12.5 MG TABLET PO ×2 (09:28→20:37)
[2019-06-19] MEDS: DOCUSATE 100 MG CAPSULE PO (09:28)
[2019-06-19] MEDS: AMLODIPINE 5 MG TABLET 10 MG PO (09:28)
[2019-06-19] MEDS: SODIUM CHLORIDE 0.9% FLUSH 10 ML IV ×2 (09:29→20:41)
--- NOTE | 2019-06-19 12:07 | PT.IPTN ---
Current Diagnoses Morbid (severe) obesity due to excess calories (06/17/19) Spinal stenosis, lumbar region with neurogenic claudication (06/17/19) Other intervertebral disc degeneration, lumbar region (06/17/19) Strain of muscle, fascia and tendon of lower back, subsequent encounter (06/17/19) Surgery Performed Operation Date: 06/17/19 07:45 Actual Procedures p L1-2,L2-3,L3-4,L4-5 Laminectomies - Kenny Arshad MD Physical Therapy Treatment Note M2 PT-IP Current Condition Start: 06/17/19 17:13 Freq: NEEDED Status: Active Protocol: Document 06/17/19 16:32 DCW (Rec: 06/17/19 17:32 DCW [id number]) Physical Therapy Current Condition Current Condition Evaluation Date 06/17/19 Treatment Diagnosis Lumbar stenosis /c radiculopathy s/p L1-5 Lami Onset Date 06/17/19 Precautions Lumbar Precautions Log Roll,No Twisting,Limit Bending,Lifting Restriction of 10 lbs,Gait Belt above Incisional Area Weight Bearing Status Weight Bearing Status Weight Bear as Tolerated M3 PT-IP Subjective Start: 06/17/19 17:13 Freq: NEEDED Status: Active Protocol: Document 06/19/19 11:39 KS (Rec: 06/19/19 12:38 KS [id number]) Subjective Physical Therapy Visit Type Type Treatment Note Visit Start Time 11:39 Visit Stop Time 12:07 Total Visit Minutes 28 Notes Pts present during treatment. Number of RADIOCHEMICAL TECHNICIAN Visits 2 Physical Therapy Visit Comments Patient Comments Pt agreeable to mobilize with PT Therapy Pain Assessment Pain When Pain Assessed During Mobility Pain Present Pain Present Pain Reported Location Back Scale Used no number given, described as slight pain pulling on incision Description Pulling M4 PT-IP Mobility and Gait Start: 06/17/19 17:13 Freq: NEEDED Status: Active Protocol: Document 06/19/19 11:39 KS (Rec: 06/19/19 12:38 KS [id number]) PT-Transfer Assessment Sit to and From Stand Sit to and from Stand Contact Guard Assistance, Minimal Assistance,1 Person Assistance,Use of Upper Extremities Equipment Transfer Assistive Device Gait Belt,Front Wheeled Walker Transfers Transfer Destination Chair Transfer Technique Pt ambulated w/ FWW. Transfer Ability Level of Assist Contact Guard Assistance, Minimal Assistance,1 Person Assistance Comments Mobility Comments Pt was in chair upon arrival from therapy. Pt agreed to ambulate w/ chair follow. CGA for scooting to edge of chair and CGA to Min A for sit<> stand from chair. Pt then ambulated ~60 ft in hallway w/ chair follow and seated 2 min rest breaks every ~20ft. CGA to Min A for each sit<>stand<> sit from chair w/ min cues for hand placement. Pt ambulated w/ slow pace and decreased stride length and foot clearance d/t BLE numbness and weakness. Min cues for upright posture. Pt left in chair w/ OT in room and all needs in reach. Gait Assessment Gait Gait Assistance Required: Contact Guard Assist,1 Person Assist Distance (Feet) 60 Able to Maintain Weight Bearing Status Yes During Gait Assistive Devices Assistive Device Gait Belt,Front Wheeled Walker Orthotic/Prosthetic Devices or Brace: No Gait Deviations General Gait Pattern Antalgic,Decreased Stride Length,Decreased Feet Clearance Factors Limiting Gait Function Factors Limiting Gait Function Decreased Activity Tolerance, Decreased Strength,Limited Range of Motion,Pain,Poor Balance,Poor Safety Awareness Comments Gait Comments Please see mobility section for details. M5 PT-IP Objective Assessments Start: 06/17/19 17:13 Freq: NEEDED Status: Active Protocol: Document 06/17/19 16:32 DCW (Rec: 06/17/19 17:32 DCW [id number]) Orientation Orientation/Cognition Level of Alertness Alert Orientation Name,Birthday,Month,Date,Year, Place,Situation Safety Awareness Understands Safety Issues Memory Description No Deficits Noted Gross Range of Motion Lower Extremity ROM Assessment Bilaterally Impaired Strength Lower Extremity Strength Assessment Bilaterally Impaired Hip 4/5 Knee 4-/5 Ankle 4/5 M6 PT-IP Treatment Start: 06/17/19 17:13 Freq: NEEDED Status: Active Protocol: Document 06/19/19 11:39 KS (Rec: 06/19/19 12:38 KS [id number]) Physical Therapy Treatment Education Education Provided Precautions,Post-Op Packet, Safety Other Treatments Other Treatment Performed Provided pt and caregiver education on benefits of pt going to SNF for rehab. Reviewed LE strengthening exercises. M7 PT-IP Assessment and Plan Start: 06/17/19 17:13 Freq: NEEDED Status: Active Protocol: Document 06/19/19 11:39 KS (Rec: 02/08/20 12:38 KS [id number]) PT Summary Assessment and Plan Potential Rehabilitation Potential Good Status of Condition at Evaluation Stable Summary Impairments Pain,ROM,Strength,Balance,Bed Mobility,Transfers,Gait, Activity Tolerance Assessment Summary Pt was able to ambulate ~60ft today w/ CGA and FWW and chair follow. Pt required 3 seated ~2 min rest breaks every ~20ft . Pt walks w/ decreased foot clearance and stride length d/ t BLE numbness and weakness. Pt is CGA to Min A for transfers requiring min cues for hand placement and sequencing. Pt will benefit from continued skilled rehab to address strength deficits and improve level of function. Goals Bed Mobility Goal Independent Transfer Goal Independent Gait Goal Independent,Front Wheel Walker Gait Distance 75' Frequency of Treatment Frequency Of Treatment Twice a Day Treatment Plan Physical Therapy Treatment Plan Bed Mobility Training,Transfer Training,Gait Training, Therapeutic Exercise Other Recommendations and Next Treatment Activity tolerance, bed Focus mobility, transfers, gait Recommendations To Nursing Amount of Assist Needed 1 Person Assist Discharge Recommendations PT Discharge Recommendations SNF Rehab
--- NOTE | 2019-06-19 12:27 | OT.IP.TRT ---
Current Diagnoses Morbid (severe) obesity due to excess calories (06/17/19) Spinal stenosis, lumbar region with neurogenic claudication (06/17/19) Other intervertebral disc degeneration, lumbar region (06/17/19) Strain of muscle, fascia and tendon of lower back, subsequent encounter (06/17/19) Surgery Performed Operation Date: 06/17/19 07:45 Actual Procedures p L1-2,L2-3,L3-4,L4-5 Laminectomies - Kenny Arshad MD Occupational Therapy Treatment Note M2 OT-IP Current Condition Start: 06/18/19 10:09 Freq: Status: Active Protocol: Document 06/18/19 10:10 CGR (Rec: 06/18/19 10:30 CGR [email or web address]) Occupational Therapy Current Condition Current Condition Evaluation Date 06/18/19 Treatment Diagnosis L1-5 Lami Diagnosis Onset Date 06/17/19 Post Operative Precautions Lumbar Precautions Log Roll,No Twisting,Limit Bending,Lifting Restriction of 10 lbs,Gait Belt above Incisional Area M3 OT- IP Subjective and Pain Start: 06/18/19 10:09 Freq: Status: Active Protocol: Document 06/19/19 13:30 CGR (Rec: 06/19/19 13:45 CGR [email or web address]) OT- Subjective Occupational Therapy Visit Type Type Treatment Note Visit Start Time 11:24 Visit Stop Time 12:27 Total Visit Minutes 63 OT Pain Assessment Pain When Pain Assessed At Rest Pain Present Pain Present Pain Reported Location Back Intensity 3 Scale Used Numeric (1 - 10) Management Techniques Modification of Treatment, Timing of Activity with Medications M4 OT- IP ADL's Start: 06/18/19 10:09 Freq: Status: Active Protocol: Document 06/19/19 13:30 CGR (Rec: 06/19/19 13:45 CGR [email or web address]) OT [id number] General Evaluation Self-Feeding Ability Independent Comments OT Self-Feeding Comments Lunch OT ADL-Grooming Comments OT Grooming Comments Not performed in this session. OT ADL-Oral Care Comments Oral Care Comments Not performed in this session. OT ADL-Dressing General Eval Lower Body Dressing Ability Contact Guard Assistance Areas Needing Assistance Socks Assistive Devices Dressing Assistive Devices Keyboard Operator,Sock Aid Comments OT Dressing Comments Deomstrated and educated on LB dressing with the imaging tech and sock aid. Pt doffed and donned sock to the LLE for practice but declined to perform more. Pt educated on how to use imaging tech for underwear and pants. Provided with hip kit. OT ADL-Toileting General Evaluation Toileting Ability Maximum Assistance Areas Needing Assistance Manage Clothing,Perform Perineal Hygiene Devices Toileting Assistive Devices Grab Bars Comments OT Toileting Comments Pt urinated seated on toilet but needed assist with peircare and with pulling up briefs. OT ADL-Bathing Comments OT Bathing Comments Not performed in this session. M5 OT- IP IADL's Start: 06/18/19 10:09 Freq: Status: Active Protocol: Document 06/18/19 10:10 CGR (Rec: 06/18/19 10:30 CGR [email or web address]) OT-Instrumental Activities of Daily Living Deficits IADL Deficits Identified Deficits Home Safety Awareness Awareness of Need for Assistance at Home Good Awareness Ability to Problem Solve Emergency Able to Problem Solve Situations Medication Management Medication Management No Deficits Identified Money Management Money Management No Deficits Identified Meal Preparation Meal Preparation Caregiver Provides Assist Research Development Manager Research Development Manager Caregiver Provides Assist Driving Driving Comments Pt does not drive M6 OT- IP Functional Cognition Start: 06/18/19 10:09 Freq: Status: Active Protocol: Document 06/18/19 10:10 CGR (Rec: 06/18/19 10:30 CGR [email or web address]) Cognitive Factors Limiting Selfcare Function Cognitive Ability Level of Alertness Alert Patient Orientation Name,Age,Birthday,Month,Date, Year,Day of Week,Place, Situation Attention Span Ability Capable of Focused Attention, Capable of Sustained Attention Ability to Follow Commands Able to Follow Multi-Step Commands Memory Description No Deficits Noted Safety Awareness Decreased Recall of Precautions Problem Solving Ability No deficits Noted Executive Function Ability No Deficits Noted Abstract Thinking Ability No Deficits Noted Cognitive Comments Cognitive Assessment Comments Pt appears cognitively sharp for 79 years old. Pt is a good listener, follows commands, and applys new information to her decision making. OT- Vision and Hearing OT- Hearing Assessment OT- Hearing Assessment WFL OT- Vision Assessment Visual Acuity Glasses All The Time Visual Attentiveness WFL Occular Pursuits WFL Visual Convergence WFL Visual [place] WFL Vision Assessment Comments Pt is slow with visual tracking but WFL as she no longer drives. M7 OT- IP Mobility and Balance Start: 06/18/19 10:09 Freq: Status: Active Protocol: Document 02/08/20 13:30 CGR (Rec: 06/19/19 13:45 CGR [email or web address]) OT- Bed Mobility Assessment Rolling Type of Rolling Log Rolling,Roll to Left Level of Assistance Moderate Assistance Supine to Sit Supine to Sit Assist Moderate Assistance Scooting Scooting to Edge of Bed Standby Assistance OT-Transfer Assessment Sit to and From Stand Sit to and from Stand Contact Guard Assistance, Minimal Assistance Transfers Transfer Ability Contact Guard Assistance Technique Transfer Destination Bed,Chair,Toilet Transfer Technique Stand Step Pivot Devices Transfer Assistive Devices Gait Belt,Front Wheeled Walker Comments Mobility Comments Pt needed increased assist for rollign and supine to sit but was able to scoot today without physical assist. Transfers required min a and pt with poor endurance for standing/walking activity. OT- Gait Assessment Gait Gait Assistance Required: Contact Guard Assist Assistive Devices Assistive Device Gait Belt,Front Wheeled Walker Comments Gait Ability Comments See p.t. note for distance. Pt ambulated with OT following with chair and required multiple rest breaks but walked a greater distance than yesterday. OT- Balance Assessment Sitting Balance and Reactions Static Sitting Balance Ability Good Dynamic Sitting Balance Ability Fair M8 OT- IP Objective Assessments Start: 06/18/19 10:09 Freq: Status: Active Protocol: Document 06/18/19 10:10 CGR (Rec: 06/18/19 10:30 CGR [email or web address]) OT Gross Range of Motion Upper Extremity Range of Motion Assessment Within Functional Limits OT Strength Upper Extremity Strength Assessment Within Functional Limits Comments Strength Comments Grossly 4/5 OT- Coordination Assessment Upper Extremity Finger to Nose Test Within Functional Limits Finger Tapping Test Within Functional Limits OT-Muscle Tone Assessment Muscle Tone WNL Yes OT Sensation Assessment Comments Summary Comments Pt states tingling and numbness to her feet but nothing to her arms or hands. Edema Edema Absent M9 OT- IP Assessment and Plan Start: 06/18/19 10:09 Freq: Status: Active Protocol: Document 06/19/19 13:30 CGR (Rec: 06/19/19 13:45 CGR [email or web address]) OT Summary Assessment and Plan Potential Rehabilitation Potential Excellent Analytic Complexity at Evaluation Low Summary OT Impairments Pain,Strength,Balance, Functional Mobility,Grooming, Dressing,Toileting,Bathing, Toilet Transfers,Shower Transfers,Activity Tolerance Progress Towards Goals Slow Progress due to Pain,Slow Progress due to Activity Tolerance Assessment Summary Pt presents as a low complexity evaluation s/p L1-5 TLIF. Pt is progressing with therapy but would benefit from rehab. Pt has needed assist from her for the last ~2 months but prior to that was very independent and went to hour long workouts 3 times a week. Pt appears highly motivated to get better. Recommendation is still for SNF. Goals Grooming Goal Independent Dressing Goal Independent Toileting Goal Independent Bathing Goal Standby Assistance Toilet Transfer Goal Independent,ADA High Toilet, Grab Bars Shower Transfer Goal Standby Assistance,Walk-in Shower Days to Meet Goals 10 Frequency of Treatment Frequency Of Treatment Once a Day Treatment Plan OT Treatment Plan ADL Training,Functional Mobility,Patient/Family Education,Discharge Planning Other Treatment Recommendations and Next Shower and ADLs standing if Treatment Focus tolerated. LB dressing review. Discharge Recommendations OT Discharge Recommendations SNF Rehab Other Discharge Recommendations Pt agreeable to considering SNF if needed at time of discharge. Home Equipment Needs Tub transfer bench, educated pt on use for home. Transportation Needs at Discharge Private Vehicle
[2019-06-19] MEDS: MAG HYDROX/ALUM/SIMETH 30 ML UDC PO (14:43)
--- NOTE | 2019-06-19 14:58 | PT-IP ANOTE ---
Pt refused treatment this afternoon d/t high levels of pain. Pt stated that she had been up for a while sitting EOB trying to get her dressing changed by nursing and she does not want to get up with PT this afternoon.
--- NOTE | 2019-06-19 16:19 | CM.DPNOTE ---
DCP Cont DCP has wavered today. Dr Arshad encouraging home plan, Therapy team, especially CJ,OT, feel strongly today that pt should DC to SNF for maximized results in her recovery from spinal surgery; reviewed w/ pt and her son Tim and pt agreeable. faxed information to [facility] because pt and spouse live across the street and CJ, OT thinks pt can tolerate 3 hrs daily on an acute rehab unit. Spoke w/ Patricia at [facility] acute rehab P# [phone] F# [phone], she explained they still had a bed and she could review for possible admission Friday. Faxed clinical packet for review This MANAGER PROGRAMMING encouraged pt and family to discuss their wishes w/Dr Arshad in the AM, he will be rounding early in the AM. If [facility] acute rehab does not work out, and pt still requesting SNF, a b/u SNF option will need to be discussed and secured ? OBED Evans
[2019-06-19] MEDS: MAGNESIUM HYDROXIDE 30 ML UDC PO (18:11)
[2019-06-19] MEDS: GABAPENTIN 300 MG CAPSULE PO (20:40)
[2019-06-20 00:20] VITALS: BP 146/95; PULSE 91; RESP 20; TEMP 36.6; O2SAT 98
--- NOTE | 2019-06-20 03:04 | PC.NURSE ---
Addendum entered by Erika Becerra R.N. 06/20/19 05:51: Up to bathroom this morning and voided 500cc clear bobbi urine. Walks with 1 assist and walker. Needs help to pull down pull up, wipe after urinating and getting feet back into bed. Some hesitation noted when walking but was steady on feet. Denies pain. Noted bruising below coversite dressing. Original Note: Patient is alert and oriented. Breath sounds CTA with RA sat of 98%. HRR. Denies nausea. Has been having loose stools following administration of MOM on previous shift. Voiding on toilet but does have chronic urgency/dribbling so wearing a pull-up; denies dysuria. Still needing assistance to reposition. Out of bed with 1 assist + walker; is hesitant with walking due to continued, but improving numbness, in bilateral LE. Tonight states numbness is only resent from calf to toe. Dressing to back is CDI. Denies pain. Wearing bilateral SCD's. Fall risk score is high and bed alarm is activated. Plan is to DC to SNF later today.
[2019-06-20 05:00] VITALS: BP 136/80; PULSE 77; RESP 16; TEMP 36.7; O2SAT 99
[2019-06-20] MEDS: LEVOTHYROXINE 137 MCG TABLET PO (05:48)
[2019-06-20 08:00] VITALS: BP 128/80; PULSE 73; RESP 19; TEMP 37.1; O2SAT 97
--- NOTE | 2019-06-20 08:20 | PC.NURSE ---
Assess-Patient is A&Ox3. She has two cover site dressings to her lower back that are clean dry and intact. Up with 1 PA and walker. Slept in this morning. Her plan is to be discharged to a custodial Facility most likely today. Using Vicodin for discomfort. Denies any nausea and appetite is good.
--- NOTE | 2019-06-20 08:24 | P.PN_ITS ---
Subjective Subjective Date Patient Seen: 06/20/19 Time Patient Seen: 08:25 Interval history: Doing well. Pain under good control. Still requiring assist for mobility. Exam Vital Signs (past 8 hours): - 06/20/19 05:00 Temperature 98.1 F Pulse Rate 77 Respiratory Rate 16 Blood Pressure 136/80 Pulse Oximetry 99 Oxygen Delivery Method Room Air Oxygen Flow Rate 0 Const Orientation: alert and oriented x3 Back/Spine/Pelvis Other: CDI. 5/5 motor both lower extremities Objective Labs Result Diagrams: 06/18/19 05:20 Assessment & Plan Post-op Postoperative Procedures: Procedures Operation Date: 06/17/19 07:45 Actual Procedures Side Surgeon p L1-2,L2-3,L3-4,L4-5 Laminectomies Kenny Arshad MD She is doing well. Plan to discharge to custodial at this point for continued need for assistance for mobility. Quality VTE Deep Vein Thrombosis/Pulmonary Embolism Present on Admission: No
--- NOTE | 2019-06-20 08:25 | P.DS_ITS ---
History of Present Illness History of Present Illness Date Patient Seen: 06/20/19 Time Patient Seen: 08:25 Chief complaint: *OPB* [id number] Narrative: 79-year-old female with severe spinal stenosis. She has become progressively weaker and has pain and tingling in the legs. 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 She has been through epidural injections as well as physical therapy. Discharge Providers Provider Date of admission: 06/17/19 06:08 Discharge Date: 06/20/19 Primary care physician: Endy Lenz MD Consults: 06/17/19 13:43 Consult to Occupational Therapy Evaluate & Treat Comment: Physician Instructions: Evaluate and treat Consult to Physical Therapy Evaluate & Treat Comment: Physician Instructions: Evaluate and Treat 06/17/19 15:30 Consult to Respiratory Therapy Evaluate & Treat Comment: hx of asthma Physician Instructions: Evaluate and treat Discharge provider: Kenny Arshad MD Summary Hospital Course Discharge Diagnosis: Lumbar stenosis with radiculopathy Hospital Course: She is brought to the operating room on 06/17/2018 where she underwent a L1 through L5 laminectomy. Postoperatively her leg strength was improving and her tingling was improved. She was walking with physical therapy, although still requiring 1 person assist through this. Her pain was under good control with medication. Status at Discharge Cognitive/behavioral status at discharge: oriented Functional status at discharge: uses cane/walker Overall status at discharge: patient is progressing back to baseline Exam Vital Signs (past 8 hours): - 06/20/19 05:00 Temperature 98.1 F Pulse Rate 77 Respiratory Rate 16 Blood Pressure 136/80 Pulse Oximetry 99 Oxygen Delivery Method Room Air Oxygen Flow Rate 0 Const Orientation: alert and oriented x3 Back/Spine/Pelvis Other: CDI. 5/5 motor both lower extremities Objective Labs Result Diagrams: 06/18/19 05:20 Discharge Plan Discharge Plan Patient Disposition: [facility] Other facility: [facility] Under care of provider: Facility physician Consult as needed: Dental, Hearing, Mental health, Podiatry and Vision Discharge orders & Medications Prescriptions: New celecoxib [Celebrex] 200 mg Capsule 200 mg PO BID PRN (Reason: pain) Qty: 60 RF: 0 hydrocodone-acetaminophen 5-325 mg Tablet See Rx Instructions .ROUTE .COMPLEX PRN (Reason: Pain, Moderate (4-6)) Qty: 30 RF: 0 hydroxyzine pamoate 25 mg Capsule 25 mg PO Q4HR PRN (Reason: spasms) Qty: 20 RF: 0 Continued cyclobenzaprine 10 mg Tablet 10 mg PO TID PRN (Reason: Muscle spasm) RF: 0 levothyroxine 137 mcg Tablet 137 mcg PO DAILY RF: 0 carvedilol 12.5 mg Tablet 12.5 mg PO BID RF: 0 aspirin 81 mg Tablet,Delayed Release (Dr/Ec) 81 mg PO DAILY RF: 0 tramadol 50 mg Tablet 50 mg PO Q8H PRN (Reason: Pain) RF: 0 amlodipine 10 mg Tablet 10 mg PO DAILY RF: 0 albuterol sulfate 90 mcg/actuation Hfa Aerosol Inhaler 2 puff INHALATION Q4-6H PRN (Reason: Wheezing) RF: 0 losartan 100 mg Tablet 100 mg PO DAILY RF: 0 fluticasone propionate 50 mcg/actuation [place],Suspension 1 spray INTRANASAL DAILY RF: 0 omega 7-txm-[id number]-fish oil 1,000 mg (120 mg-180 mg) Capsule 1 cap PO DAILY RF: 0 Follow up/Referrals: Endy Lenz MD [Primary Care Provider] - Discharge Health Status Multidrug resistant organism: No MDRO Precautions: Jones Diet/Activity/Treatments Diet: Diet as Tolerated Liquid consistency: Normal/Thin Food texture: Regular Activity: limited BLT 10 lbs max Skin/Wound/Dressing Care Dressing: may change and shower POD#5 (06/22/19), replace dressing when done [facility] Rehabilitation [facility] Reason for rehabilitation: Post-operative therapy Rehab type: Physical therapy and Occupational therapy Visit Report/Discharge Packet Instructions: DI for Laminectomy, DI for Prescription Opioid Use Stand Alone Forms: Surgery Discharge Discharge Data Primary Care Provider: Endy Lenz Quality VTE Deep Vein Thrombosis/Pulmonary Embolism Present on Admission: No
[2019-06-20] MEDS: DOCUSATE 100 MG CAPSULE PO (08:42)
[2019-06-20] MEDS: carvediloL 12.5 MG TABLET PO (08:42)
[2019-06-20] MEDS: LOSARTAN 50 MG TABLET 100 MG PO (08:42)
[2019-06-20] MEDS: CELECOXIB 200 MG CAPSULE PO (08:42)
[2019-06-20] MEDS: FISH OIL 1,000 MG CAPSULE 1000 MG PO (08:42)
[2019-06-20] MEDS: ASPIRIN EC 81 MG TABLET PO (08:42)
[2019-06-20] MEDS: HYDROCODONE/ACET 5/325 TABLET 2 TAB PO ×2 (08:43→13:16)
[2019-06-20] MEDS: AMLODIPINE 5 MG TABLET 10 MG PO (08:43)
[2019-06-20 08:53] VITALS: PULSE 69; RESP 12; O2SAT 98
--- NOTE | 2019-06-20 11:41 | PT.IPTN ---
Current Diagnoses Morbid (severe) obesity due to excess calories (06/17/19) Spinal stenosis, lumbar region with neurogenic claudication (06/17/19) Other intervertebral disc degeneration, lumbar region (06/17/19) Strain of muscle, fascia and tendon of lower back, subsequent encounter (06/17/19) Surgery Performed Operation Date: 06/17/19 07:45 Actual Procedures p L1-2,L2-3,L3-4,L4-5 Laminectomies - Kenny Arshad MD Physical Therapy Treatment Note M2 PT-IP Current Condition Start: 06/17/19 17:13 Freq: NEEDED Status: Active Protocol: Document 06/17/19 16:32 DCW (Rec: 06/17/19 17:32 DCW [id number]) Physical Therapy Current Condition Current Condition Evaluation Date 06/17/19 Treatment Diagnosis Lumbar stenosis /c radiculopathy s/p L1-5 Lami Onset Date 06/17/19 Precautions Lumbar Precautions Log Roll,No Twisting,Limit Bending,Lifting Restriction of 10 lbs,Gait Belt above Incisional Area Weight Bearing Status Weight Bearing Status Weight Bear as Tolerated M3 PT-IP Subjective Start: 06/17/19 17:13 Freq: NEEDED Status: Active Protocol: Document 06/20/19 11:41 CLB (Rec: 06/20/19 12:06 CLB [id number]) Subjective Physical Therapy Visit Type Type Treatment Note Visit Start Time 11:41 Visit Stop Time 11:53 Total Visit Minutes 12 Number of TENTS ASSEMBLER Visits 3 Physical Therapy Visit Comments Patient Comments After initial refusal and upon return to see pt, pt agreeable to mobilize with therapy. Therapy Pain Assessment Pain When Pain Assessed During Mobility Pain Present Pain Present Pain Reported Location Back Intensity 4 Scale Used Numeric (1 - 10) M4 PT-IP Mobility and Gait Start: 06/17/19 17:13 Freq: NEEDED Status: Active Protocol: Document 06/20/19 11:41 CLB (Rec: 06/20/19 12:06 CLB [id number]) PT-Transfer Assessment Sit to and From Stand Sit to and from Stand Contact Guard Assistance,1 Person Assistance,Use of Upper Extremities Equipment Transfer Assistive Device Gait Belt,Front Wheeled Walker Transfers Transfer Destination Chair Transfer Technique Pt ambulated w/ FWW. Transfer Ability Level of Assist Contact Guard Assistance,1 Person Assistance,Use of Upper Extremities Comments Mobility Comments Pt in chair upon arrival and agreed to walk in room. Pt required CGA with cues for hip hinging to decrease bending back while standing. Pt ambulated in room then returned to chair sitting CGA. Left pt in chair with her lunch, call light and all other needs witin reach. Gait Assessment Gait Gait Assistance Required: Contact Guard Assist,1 Person Assist Distance (Feet) 35 Assistive Devices Assistive Device Gait Belt,Front Wheeled Walker Orthotic/Prosthetic Devices or Brace: No Gait Deviations General Gait Pattern Antalgic,Decreased Stride Length,Decreased Feet Clearance Factors Limiting Gait Function Factors Limiting Gait Function Decreased Activity Tolerance, Decreased Strength,Limited Range of Motion,Pain,Poor Balance,Poor Safety Awareness Comments Gait Comments Pt ambulated in room ~35ft CGA . Pt takes small shuffled steps with cues for upright posture. Pt reported 4/10 pain with ambulation. M5 PT-IP Objective Assessments Start: 06/17/19 17:13 Freq: NEEDED Status: Active Protocol: Document 06/17/19 16:32 DCW (Rec: 06/17/19 17:32 DCW [id number]) Orientation Orientation/Cognition Level of Alertness Alert Orientation Name,Birthday,Month,Date,Year, Place,Situation Safety Awareness Understands Safety Issues Memory Description No Deficits Noted Gross Range of Motion Lower Extremity ROM Assessment Bilaterally Impaired Strength Lower Extremity Strength Assessment Bilaterally Impaired Hip 4/5 Knee 4-/5 Ankle 4/5 M6 PT-IP Treatment Start: 06/17/19 17:13 Freq: NEEDED Status: Active Protocol: Document 06/20/19 11:41 CLB (Rec: 06/20/19 12:06 CLB [id number]) Physical Therapy Treatment Exercises Exercises Ankle Pumps,Quad Sets Other Treatments Other Treatment Performed pt recalled 1/3 back precautions, reviewed precautions. M7 PT-IP Assessment and Plan Start: 06/17/19 17:13 Freq: NEEDED Status: Active Protocol: Document 06/20/19 11:41 CLB (Rec: 06/20/19 12:06 CLB [id number]) PT Summary Assessment and Plan Potential Rehabilitation Potential Good Status of Condition at Evaluation Stable Summary Impairments Pain,ROM,Strength,Balance,Bed Mobility,Transfers,Gait, Activity Tolerance Assessment Summary Pt ambulated ~35ft in room before needing to sit down due to fatigue and discomfort. Pt refused further ambulation. Pt recalled 1/3 precautions. Pt will benefit from SNF rehab to increase strength , endurance and functional mobility. Goals Bed Mobility Goal Independent Transfer Goal Independent Gait Goal Independent,Front Wheel Walker Gait Distance 75' Frequency of Treatment Frequency Of Treatment Twice a Day Treatment Plan Physical Therapy Treatment Plan Bed Mobility Training,Transfer Training,Gait Training, Therapeutic Exercise Recommendations To Nursing Amount of Assist Needed 1 Person Assist Discharge Recommendations PT Discharge Recommendations SNF Rehab
--- NOTE | 2019-06-20 12:26 | CM.DPNOTE ---
DCP/continued: Reviewed chart and spoke with Dr. Arshad this AM. Per provider patient is medically stable to go to SNF today. Per TEAROOM HOSTESS hand off notes clinical had been faxed to [facility]? TEAROOM HOSTESS placed call to admit at [facility] and they report that they cannot accept today. Therefore, met with patient explained CM/SW role. Patient anticipated on going to [facility] but is agreeable to pick SNF off of Medicare choice list. First choice is [facility]. Placed call to [facility] spoke wiht admit and faxed clinicals and completed PASRR. [facility] reports that they do have bed and can accept today. Transport will be arranged by [facility] and [facility] will be provider. technology support analyst scheduled between 1:00-1:30pm. Patient in agreement with plan and signed Important Message from Medicare at approximately noon today. P: [facility] via cabulance today. PASRR completed and orders faxed. OBED Arnold
--- NOTE | 2019-06-20 14:27 | PC.NURSE ---
Report called to Kate at [facility] around 1300. Pt left here at 1345 via wheel chair.
== END 2019-06-20 13:45 | DRG 519 ==
LOC: OR 13:37
PROVIDERS: Admitting Provider Orthopaedic Surgery; PCP Family Medicine; Referring Provider Orthopaedic Surgery; Visit Provider Orthopaedic Surgery
PROC: 01NB0ZZ Release Lumbar Nerve, Open Approach (ICD-10-PCS; principal; 2019-06-17 07:45)
DX: M48.062 Spinal stenosis, lumbar region with neurogenic claudication (principal); Z68.41 Body mass index [BMI] 40.0-44.9, adult; M51.36 Other intervertebral disc degeneration, lumbar region; E66.01 Morbid (severe) obesity due to excess calories; E03.9 Hypothyroidism, unspecified; I10 Essential (primary) hypertension; E78.5 Hyperlipidemia, unspecified
CPT/HCPCS: 36415; 72020; 76000; 85014; 85018; 94760; 97110; 97116; 97161; 97165; 97530; 97535; A9270; J0131; J0690; J1100; J1170; J2405; J2704; J2765; J3010; J3410